=== PATIENT | female | born 1980 ===

== ENCOUNTER 2018-04-07 21:26 | Emergency (ER) | payer BC ==
[2018-04-07 22:22] LABS: #Eosinphils 0.1 thou/uL (0.0-0.7); #Lymphocytes 2.1 thou/uL (1.20-3.40); #Monocytes 0.5 thou/uL (0.11-0.59); #Neutrophils 5.8 thou/uL (1.40-6.50); %Basophils 0.5 % (0.0-1.0); %Eosinophils 1.1 % (0.0-10.0); %Lymphocytes 24.7 % (21.0-51.0); %Monocytes 5.7 % (0.0-10.0); %Neutrophils 67.9 % (42.0-75.0); Hemoglobin 10.8 g/dL (12.0-16.0); Mean Corpuscular HGB CONC 33.3 g/dL (32.0-36.0); Mean Corpuscular Hemoglobin 25.7 pg (27.0-31.0); Mean Corpuscular Volume 77.1 fL (78.0-98.0); Mean Platelet Volume 7.8 fL (7.4-10.4); Platelet Count 304 thou/uL (130-400); RBC Distribution Width 17.6 % (11.5-14.5); White Blood Cell (WBC) Count 8.6 thou/uL (4.8-10.8)
[2018-04-07 22:28] LABS: Bilirubin Negative (Negative); Blood, Urine Negative (Negative); Clarity CLEAR (Clear); Glucose, Urine (Dipstick) Negative (Negative); Leukocyte Negative (Negative); Nitrite Negative (Negative); Pregnancy Test - Urine (BHCG) Negative (Negative); Pregu Control Background? CLEAR/WHITE (CLR/WHITE); Pregu Control Bar Appear? YES (CONTROL BAR); Protein, Urine (Dipstick) Negative (Neg-Trace); Urobilinogen 0.2 mg/dL (0.2-1.0)
[2018-04-07 22:31] LABS: Specific Gravity 1.003 (1.002-1.036); Specific Gravity, Urine 1.003 (1.002-1.036)
[2018-04-07 22:42] LABS: ALT (SGPT) 8 U/L (8-55); AST (SGOT) 12 U/L (5-34); Albumin 4.1 g/dL (3.5-5.0); Alkaline Phosphatase 61 U/L (40-150); Anion Gap 10 mmol/L (10-20); BUN (Urea Nitrogen) 7 mg/dL (7.0-18.7); Bilirubin, Total 0.4 mg/dL (0.2-1.2); Calc. Creatinine Clearance 0 mL/min (70-130); Calcium 8.9 mg/dL (7.8-10.44); Carbon Dioxide 26 mmol/L (22-29); Chloride 104 mmol/L (98-107); Estimated GFR-MDRD 74; Globulin 3.1 g/dL (2.4-3.5); Glucose 107 mg/dL (70-105); Lipase 24 U/L (8-78); Potassium 3.8 mmol/L (3.5-5.1); Protein, Total 7.2 g/dL (6.0-8.3); Sodium 136 mmol/L (136-145)
--- NOTE | 2018-04-07 23:32 | ULT ---
RIGHT UPPER QUADRANT ULTRASOUND: 04/07/18 HISTORY: Right upper quadrant abdominal pain with nausea, vomiting, and diarrhea. FINDINGS: The gallbladder is contracted. Glaser of the gallbladder do appear thickened. This is probably related to incompletely distended state of the gallbladder. No obvious gallbladder calculus is seen and ther e is no pericholecystic fluid present. The common duct is normal in caliber measuring 0.[address] The visualized portions of the pancreas, visualized portions of the IVC, and liver demonstrate a norm al sonographic appearance. The right kidney measures 10.9 cm in length. There is suggestion of very mild right hydronephrosis. IMPRESSION: 1. Caliectasis to minimal right hydronephrosis of uncertain etiology. 2. Contracted state of the gallbladder which limits evaluation of the gallbladder. No obvious ga llbladder calculus is present. However, followup evaluation is suggested if there is concern for gall bladder calculi. 3. Common duct is normal in caliber. POS: [facility]
== END 2018-04-08 00:11 | disposition home or self-care (01) ==
LOC: ERS 21:26
DX: R10.11 Right upper quadrant pain (principal); R19.7 Diarrhea, unspecified; D64.9 Anemia, unspecified
CPT/HCPCS: 36415; 76705; 80053; 81003; 81025; 83690; 85025

== ENCOUNTER 2020-06-30 20:31 | Emergency (ER) | payer BC ==
[2020-06-30] MEDS ORDERED: Ondansetron ODT 4 MG TAB ONE (21:42)
[2020-06-30] MEDS ORDERED: Morphine 4 MG/ML VIAL ONE (21:42)
[2020-06-30] MEDS ORDERED: Dexamethasone 4 mg/ml Vial ONE (21:42)
== END 2020-06-30 22:44 | disposition home or self-care (01) ==
LOC: ERS 20:31
DX: M54.32 Sciatica, left side (principal); M53.3 Sacrococcygeal disorders, not elsewhere classified; D64.9 Anemia, unspecified
CPT/HCPCS: 96372; 99283; J1100; J2270; Q0162